=== PATIENT | female | born 1965 | race Two or more races ===

== ENCOUNTER 2018-10-30 10:32 | Inpatient (IN) | payer OTHER ==
[~2018-10-30] VITALS: Ht 165.1 cm; Wt 86.2 kg
[2018-12-05] MEDS ORDERED: TOPROL XL50 M1 PO (10:49)
== END 2018-12-15 13:47 | DRG 470 ==
LOC: SURG 12-05 07:30 → O/R 12-12 06:20 → SURG 12-12 06:20
PROVIDERS: ADMIT Orthopaedic Surgery
PROC: 0SRD0J9 Replacement of Left Knee Joint with Synthetic Substitute, Cemented, Open Approach (ICD-10-PCS; principal; 2018-12-12 11:00)
DX: M17.12 Unilateral primary osteoarthritis, left knee (principal); D62 Acute posthemorrhagic anemia; I97.89 Other postprocedural complications and disorders of the circulatory system, not elsewhere classified; I10 Essential (primary) hypertension

== ENCOUNTER 2019-11-02 12:45 | Inpatient (IN) | payer OTHER ==
[~2019-11-02] VITALS: Ht 167.6 cm; Wt 90.3 kg
[~2019-11-02 12:45] MED LIST: TOPROL XL50 M1 PO
[2019-11-16] MEDS ORDERED: NORFLEX100MG PO (14:16)
[2019-11-16] MEDS ORDERED: XARELTO10 MG PO (14:16)
[2019-11-16] MEDS ORDERED: GABAPENTIN100 MG PO (14:16)
[2019-11-16] MEDS ORDERED: OXYC1TAB9 PO (14:16)
== END 2019-11-16 15:47 | DRG 467 ==
LOC: O/R 11-06 12:45 → SURG 11-13 06:15 → O/R 11-13 06:15 → SURG 11-13 13:54
PROVIDERS: ADMIT Orthopaedic Surgery; ATTEND Orthopaedic Surgery
PROC: 0SWD0JZ Revision of Synthetic Substitute in Left Knee Joint, Open Approach (ICD-10-PCS; principal; 2019-11-13 07:00)
DX: T84.84XA Pain due to internal orthopedic prosthetic devices, implants and grafts, initial encounter (principal); D62 Acute posthemorrhagic anemia; I10 Essential (primary) hypertension; L80 Vitiligo